=== PATIENT | female | born 1955 | race Hispanic/Latino ===

== ENCOUNTER 2019-03-30 16:26 | Inpatient (IN) | payer SELFPAY ==
[~2019-03-30] VITALS: Ht 160 cm; Wt 55.1 kg
--- OUTSIDE RECORDS SUMMARY | 2019-03-30 16:30 | XMS REPORT ---
[facility] Address Unknown Phone Unavailable Care Team Providers Care Flare Maker Name Role Phone Unavailable Unavailable Problems This patient has no known problems. Allergies, Adverse Reactions, Alerts This patient has no known allergies or adverse reactions. Medications This patient has no known medications. Encounters Start Date/Time End Date/Time Encounter Type Admission Type Attending [facility] Care Department Encounter ID 2019-05-30 00:00:00 2019-05-30 00:00:00 Outpatient [facility] [id number] 2019-04-10 00:00:00 2019-04-10 00:00:00 Outpatient [facility] [id number] 2019-04-05 00:00:00 2019-04-05 00:00:00 Outpatient [facility] [id number] 2019-03-21 08:13:19 2019-03-21 08:13:19 Outpatient [facility] [id number] 2019-03-21 00:00:00 2019-03-21 00:00:00 Outpatient [facility] [id number] 2019-03-13 00:00:00 2019-03-13 00:00:00 Outpatient [facility] [id number] 2019-03-09 09:20:54 2019-03-09 09:20:54 Outpatient [facility] [id number] 2019-03-06 00:00:00 2019-03-06 00:00:00 Outpatient [facility] [id number] 2019-03-03 06:44:00 2019-03-03 06:44:00 Outpatient [facility] [id number] 2019-03-03 00:00:00 2019-03-03 00:00:00 Outpatient [facility] [id number] 2019-03-02 14:18:48 2019-03-02 14:18:48 Outpatient [facility] [id number] 2019-03-02 00:00:00 2019-03-02 00:00:00 Outpatient [facility] [id number] 2019-03-01 00:00:00 2019-03-01 00:00:00 Outpatient [facility] [id number] 2019-02-14 08:39:36 2019-02-14 08:39:36 Outpatient [facility] [id number] 2019-02-13 13:26:56 2019-02-13 13:26:56 Outpatient [facility] [id number] 2019-02-13 13:25:38 2019-02-13 13:25:38 Outpatient [facility] [id number] 2019-02-13 00:00:00 2019-02-13 00:00:00 Outpatient [facility] [id number] 2019-02-09 08:54:27 2019-02-09 08:54:27 Outpatient [facility] [id number] 2019-02-09 07:54:16 2019-02-09 07:54:16 Outpatient [facility] [id number] 2019-02-09 00:00:00 2019-02-09 00:00:00 Outpatient [facility] [id number] 2019-02-09 00:00:00 2019-02-09 00:00:00 Outpatient [facility] [id number] 2019-02-08 07:26:21 2019-02-08 07:26:21 Outpatient [facility] [id number] 2019-01-31 09:26:23 2019-01-31 09:26:23 Outpatient [facility] [id number] 2019-01-31 09:22:54 2019-01-31 09:22:54 Outpatient [facility] [id number] 2019-01-31 00:00:00 2019-01-31 00:00:00 Outpatient [facility] [id number] 2019-01-31 00:00:00 2019-01-31 00:00:00 Outpatient [facility] [id number] 2019-01-30 15:54:46 2019-01-30 15:54:46 Outpatient [facility] [id number] 2019-01-10 10:29:25 2019-01-10 10:29:25 Outpatient [facility] [id number] 2019-01-10 10:15:32 2019-01-10 10:15:32 Outpatient [facility] [id number] 2019-01-10 07:57:34 2019-01-10 07:57:34 Outpatient [facility] [id number] 2019-01-10 00:00:00 2019-01-10 00:00:00 Outpatient [facility] [id number] 2019-01-03 01:58:02 2019-01-03 01:58:02 Emergency [facility] [id number] 2019-01-02 22:29:09 2019-01-02 22:29:09 Emergency [facility] [id number] 2018-12-27 00:00:00 2018-12-27 00:00:00 Outpatient [facility] [id number] 2018-12-26 07:08:16 2018-12-26 07:08:16 Outpatient [facility] [id number] 2018-12-20 10:49:51 2018-12-20 10:49:51 Outpatient [facility] [id number] 2018-12-20 00:00:00 2018-12-20 00:00:00 Outpatient [facility] [id number] 2018-12-19 08:07:37 2018-12-19 08:07:37 Outpatient [facility] [id number] 2018-12-16 07:31:56 2018-12-16 07:31:56 Outpatient [facility] [id number] 2018-12-16 00:00:00 2018-12-16 00:00:00 Outpatient [facility] [id number] 2018-12-14 16:59:17 2018-12-14 16:59:17 Outpatient [facility] [id number] 2018-10-07 08:06:59 2018-10-07 08:06:59 Outpatient [facility] [id number] 2018-09-01 14:40:32 2018-09-01 14:40:32 Outpatient [facility] [id number] 2018-07-14 11:27:20 2018-07-14 11:27:20 Outpatient [facility] [id number] 2018-07-14 09:30:12 2018-07-14 09:30:12 Outpatient [facility] [id number] 2017-07-09 00:00:00 2017-07-09 00:00:00 Outpatient [facility] [id number] 2017-03-10 09:53:02 2017-03-10 09:53:02 Outpatient [facility] [id number] 2017-03-03 00:00:00 2017-03-03 00:00:00 Outpatient [facility] [id number] 2017-01-07 16:55:44 2017-01-07 16:55:44 Outpatient [facility] [id number] 2017-01-05 13:24:40 2017-01-05 13:24:40 Outpatient [facility] [id number] 2016-12-31 00:00:00 2016-12-31 00:00:00 Outpatient [facility] [id number] 2016-12-16 12:35:09 2016-12-16 12:35:09 Outpatient [facility] [id number]
[2019-03-30] MEDS ORDERED: SODIUM CHLORIDE 0.9% 1000ML 1,000 ML IV STA (16:37)
[2019-03-30] MEDS ORDERED: SODIUM CHLORIDE 0.9% 1000ML 500 ML IV STA (16:37)
[2019-03-30] MEDS ORDERED: PANTOPRAZOLE 40 MG 10ML VIAL IV STA (16:37)
[2019-03-30 17:24] LABS: CLARITY,URINE CLEAR (CLEAR); COLOR,URINE YELLOW (YELLOW); KETONES,URINE 1+ (NEGATIVE); LEUKOCYTE ESTERASE ,URINE NEGATIVE (NEGATIVE); NITRITE,URINE NEGATIVE (NEGATIVE); PROTEIN,URINE DIPSTICK NEGATIVE (NEGATIVE)
[2019-03-30 17:25] LABS: BILIRUBIN,URINE NEGATIVE (NEGATIVE); URINE UROBILINOGEN 0.2 mg/dL (0.2 - 1)
[2019-03-30 17:29] LABS: BASOPHILS % 0.2 % (0.0-1.0); EOSINOPHILS % 0.9 % (0.0-6.0); HEMATOCRIT 32.6 % (34.2-44.1); HEMOGLOBIN 11.5 g/dL (12.0-16.0); LYMPHOCYTES # (AUTO) 1.5 (1.0-3.2); LYMPHOCYTES % 33.5 % (18.0-39.1); MEAN CORPUSCULAR HGB CONC 35.3 g/dL (31-35); MEAN CORPUSCULAR VOLUME 90.8 fL (81-99); MONOCYTES # (AUTO) 0.4 (0.2-0.8); MONOCYTES % 8.1 % (4.4-11.3); NEUTROPHILS # (AUTO) 2.5 (2.1-6.9); NEUTROPHILS % 57.1 % (38.7-80.0); PLATELET COUNT 279 x10e3/uL (140-360); RED BLOOD COUNT 3.59 x10e6/uL (3.6-5.1); RED CELL DISTRIBUTION WIDTH 11.6 % (11.7-14.4)
[2019-03-30 17:37] LABS: BACTERIA,URINE MODERATE /HPF; EPITHELIAL CELLS,URINE FEW /LPF; RBC,URINE 0-5 /HPF (0-5)
[2019-03-30 17:43] LABS: ALANINE AMINOTRANSFERASE 12 IU/L (0-55); ALBUMIN 4.1 g/dL (3.5-5.0); ALBUMIN/GLOBULIN RATIO 1.2 (0.8-2.0); ALKALINE PHOSPHATASE 91 IU/L (40-150); ANION GAP 12.7 mmol/L (8-16); BLOOD UREA NITROGEN 5 mg/dL (7-26); BUN/CREATININE RATIO 8 (6-25); CARBON DIOXIDE 25 mmol/L (22-29); CHLORIDE 88 mmol/L (98-107); CREATINE KINASE 15 IU/L (29-168); CREATININE, SERUM 0.63 mg/dL (0.57-1.11); EST GLOMERULAR FILTRATION RATE > 60 ML/MIN (60-); GLUCOSE 98 mg/dL (74-118); LIPASE 11 U/L (8-78); MAGNESIUM 1.9 MG/DL (1.3-2.1); POTASSIUM 3.7 mmol/L (3.5-5.1); SODIUM 122 mmol/L (136-145)
--- NOTE | 2019-03-30 18:04 | Diagnostic Imaging Report ---
EXAMINATION: CHEST SINGLE (PORTABLE) INDICATION: Stomach pain. ^ERMD ORDER ^[id number] ^1655 ^Y COMPARISON: None FINDINGS: TUBES and LINES: None. LUNGS: Lungs are well inflated. Lungs are clear. There is no evidence of pneumonia or pulmonary edema. PLEURA: No pleural effusion or pneumothorax. HEART AND MEDIASTINUM: The cardiomediastinal silhouette is unremarkable. BONES AND SOFT TISSUES: No acute osseous lesion. Soft tissues are unremarkable. UPPER ABDOMEN: No free air under the diaphragm. IMPRESSION: No acute thoracic abnormality. Signed by: Dr. Alexis Salomon M.D. on 03/30/2019 6:01 PM
[2019-03-30] MEDS ORDERED: ONDANSETRON HCL INJ 2MG/ML 2ML 2 MG/ML VIAL IV PRN (18:30)
[2019-03-30] MEDS ORDERED: MORPHINE SULFATE 2 MG/ML SYR 1ML IV PRN (18:30)
[2019-03-30 18:38] LABS: BLOOD UREA NITROGEN 5 mg/dL (7-26); GLUCOSE 96 mg/dL (74-118); OSMOLALITY,SERUM 245 mOsm/kg (278-305); SODIUM 123 mmol/L (136-145)
--- NOTE | 2019-03-30 19:26 | Diagnostic Imaging Report ---
EXAM: CT Abdomen and Pelvis WITH contrast INDICATION: Stomach pain. Postcholecystectomy. COMPARISON: None TECHNIQUE: Abdomen and pelvis were scanned utilizing a multidetector helical scanner from the lung base to the pubic symphysis after administration of IV contrast. Coronal and sagittal reformations were obtained. Routine protocol was performed. Scan was performed when during portal venous phase. IV CONTRAST: 100 mL of Isovue-370 ORAL CONTRAST: Water RADIATION DOSE: Total DLP: 119 mGy*cm Estimated effective dose: (DLP x 0.015 x size factor) mSv. Dose modulation, iterative reconstruction and weight base adjustment of the MA/KV was utilized to reduce the patient dose to as low as reasonably achievable COMPLICATIONS: None FINDINGS: LINES and TUBES: None. LOWER THORAX: Unremarkable HEPATOBILIARY: No focal hepatic lesions. No biliary ductal dilation. GALLBLADDER: Cholecystectomy SPLEEN: No splenomegaly. PANCREAS: No focal masses or ductal dilatation. ADRENALS: No adrenal nodules KIDNEYS/URETERS: Kidneys enhance symmetrically. No hydronephrosis. No cystic or solid mass lesions. No stones. GI TRACT: No abnormal distention, wall thickening, or evidence of bowel obstruction. Appendix is normal. PELVIC ORGANS/BLADDER: Calcified uterine fibroids. LYMPH NODES: No lymphadenopathy. VESSELS: Unremarkable. PERITONEUM / RETROPERITONEUM: No free air or fluid. BONES: Unremarkable. SOFT TISSUES: Unremarkable. IMPRESSION: Status post cholecystectomy. No acute CT abnormality in the abdomen or pelvis. Signed by: Dr. Alexis Salomon M.D. on 03/30/2019 7:23 PM
[2019-03-30] MEDS: SODIUM CHLORIDE 0.9% 1000ML 1,000 ML IV SCH ×2 (19:34→22:00)
[2019-03-30] MEDS ORDERED: ASPIR 8181 MG PO (19:35)
[2019-03-30] MEDS ORDERED: LAMICTAL100 MG PO (19:36)
[2019-03-30] MEDS ORDERED: DEXILANT60 MG PO (19:37)
[2019-03-30] MEDS ORDERED: SIMVASTATIN20 MG PO (19:37)
[2019-03-30] MEDS ORDERED: DIOVAN80 MG PO (19:37)
[2019-03-30] MEDS ORDERED: TEGRETOL200 MG PO (19:38)
[2019-03-30 20:15] VITALS: BP 154/77
--- NOTE | 2019-03-30 20:15 | NUR ---
patient received to room 297 via stretcher from the emergency room. vss. patient c/o occasional abd pain with feelings of fullness. no c/o pain noted at this time. ivf infusing without difficulty. admit assessment/history obtained. family noted at the bedside. patient/family instructed to call for assistance when needed.
[2019-03-30 20:32] VITALS: BP 154/77
[2019-03-30] MEDS ORDERED: SODIUM CHLORIDE 0.9% 50ML 50 ML ONE (20:58)
[2019-03-30] MEDS ORDERED: IOPAMIDOL 370 MG/ML 200 ML INFUS..BTL INJ ONE (20:58)
[2019-03-30] MEDS: FAMOTIDINE 20 MG/2 ML VIAL IV SCH (21:00)
--- NOTE | 2019-03-31 | NUR ---
patient appears to be resting quietly. no c/o abd pain noted. family remains at the bedside.
[2019-03-31 00:43] VITALS: BP 131/66
[2019-03-31] MEDS ORDERED: INFLUENZA VIRUS VAC SPLIT INJ 0.5 ML SYR IM SCH (03:00)
[2019-03-31] MEDS ORDERED: PNEUMOCOCCAL VACCINE POLYVALENT 23 MCG/0.5 ML VIAL IM SCH (03:00)
[2019-03-31 05:15] VITALS: BP 123/59
--- NOTE | 2019-03-31 06:00 | NUR ---
urine osmolality collected and sent to lab at this time.
[2019-03-31 06:49] LABS: BASOPHILS % 0.2 % (0.0-1.0); EOSINOPHILS # (AUTO) 0.1 (0.0-0.4); EOSINOPHILS % 1.3 % (0.0-6.0); HEMATOCRIT 31.3 % (34.2-44.1); HEMOGLOBIN 10.8 g/dL (12.0-16.0); LYMPHOCYTES # (AUTO) 1.4 (1.0-3.2); LYMPHOCYTES % 29.7 % (18.0-39.1); MEAN CORPUSCULAR HGB CONC 34.5 g/dL (31-35); MEAN CORPUSCULAR VOLUME 92.9 fL (81-99); MONOCYTES # (AUTO) 0.4 (0.2-0.8); MONOCYTES % 9.1 % (4.4-11.3); NEUTROPHILS # (AUTO) 2.7 (2.1-6.9); PLATELET COUNT 262 x10e3/uL (140-360); RED BLOOD COUNT 3.37 x10e6/uL (3.6-5.1); RED CELL DISTRIBUTION WIDTH 11.9 % (11.7-14.4)
[2019-03-31 07:02] LABS: ALANINE AMINOTRANSFERASE 11 IU/L (0-55); ALBUMIN 3.6 g/dL (3.5-5.0); ALBUMIN/GLOBULIN RATIO 1.2 (0.8-2.0); ALKALINE PHOSPHATASE 79 IU/L (40-150); ANION GAP 12.2 mmol/L (8-16); BLOOD UREA NITROGEN < 5 mg/dL (7-26); CALCIUM 8.8 mg/dL (8.4-10.2); CARBON DIOXIDE 26 mmol/L (22-29); CHLORIDE 99 mmol/L (98-107); CREATININE, SERUM 0.57 mg/dL (0.57-1.11); EST GLOMERULAR FILTRATION RATE > 60 ML/MIN (60-); GLUCOSE 82 mg/dL (74-118); LIPASE 10 U/L (8-78); POTASSIUM 4.2 mmol/L (3.5-5.1); SODIUM 133 mmol/L (136-145)
[2019-03-31 07:15] LABS: BUN/CREATININE RATIO 9 (6-25)
--- NOTE | 2019-03-31 07:18 | NUR ---
RECEIVED PATIENT LYING IN BED WITH EYES OPEN. RESPIRATION EVEN AND UNLABORED WITHOUT SOB. FAMILY MEMBER AT BEDSIDE. CALL LIGHT IN REACH.
[2019-03-31 08:38] VITALS: BP 140/71
[2019-03-31] MEDS: SODIUM CHLORIDE 0.9% 1000ML 1,000 ML IV SCH (08:39)
[2019-03-31 09:00] VITALS: BP 140/71
[2019-03-31] MEDS ORDERED: INFLUENZA VIRUS VAC SPLIT INJ 0.5 ML SYR IM ONE (09:00)
[2019-03-31] MEDS ORDERED: PNEUMOCOCCAL VACCINE POLYVALENT 23 MCG/0.5 ML VIAL IM ONE (09:00)
[2019-03-31] MEDS: FAMOTIDINE 20 MG/2 ML VIAL IV SCH (09:06)
[2019-03-31] MEDS ORDERED: METOCLOPRAMIDE HCL 10 MG TAB PO ONE (11:45)
[2019-03-31 12:26] VITALS: BP 121/70
--- NOTE | 2019-03-31 14:09 | NUR ---
IV to right AC discontinued, catheter intact, no bleeding noted. Patient is to be d/c to home today as ordered.
--- NOTE | 2019-03-31 14:15 | NUR ---
Patient is transported via wheelchair to private vehicle. Patient is discharge to home as ordered. Personal belongings are with the patient's spouse.
--- NOTE | 2019-03-31 19:53 | Discharge Summary ---
FINAL DIAGNOSES: 1. Hyponatremia secondary to most likely over consumption of water versus medication induced by Lamictal and Tegretol. The patient was taking for seizure. 2. Baseline bloating, most likely secondary to hiatal hernia, reflux, but possible slowing of the stomach. The patient will need to follow up with her GI doctor, but in the meantime, we will try Reglan 5 mg before meals. SUMMARY: A 63-year-old female with all the symptoms prior to her laparoscopic cholecystectomy. The patient had the same symptom of reflux and also with bloating. The patient had multiple workup done with her Gastroenterology at the [facility], [facility] and the patient subsequently had a laparoscopic cholecystectomy done. She has also had EGD done as well. The patient was seen in a week with low sodium level. The patient was subsequently with the symptoms, she could not get an appointment with the [facility]. She went to the [facility] Desmond was subsequently sent home without any tests done. Here, the patient's sodium level was 122 and after IV fluid rehydration was 133. The patient's BUN is too low. She did have a CAT scan of abdomen and pelvis done in the emergency room and also a chest x-ray. The CT with contrast showed that the patient is without any acute abnormality. The patient is stable. She does not have complaint of pain and physical examination otherwise unremarkable, non-distention, nontender. The patient will try on Reglan 5 mg before meals. Discussed with the patient and family. Resume home medication. The patient may need to follow up with the neurologist to adjust the medication of Tegretol and Lamictal if it is the cause of her low sodium level. I discussed with the patient's son. The low sodium level could be secondary to over consumption of water due to the test that was done. Chloride was also low and the serum osmolality also low as well at 245. The patient is otherwise stable. She will go home today. Of note, the urine random sodium is 34. The patient will discharge home. Urinalysis showed leukocyte esterase was negative, no nitrite, and clear yellow urine. No fever. No WBC elevation. The patient was discharged home. Resume home medication. New prescriptions, Reglan 5 mg before meals trial. MD KONG Rios/KEATON /[id number]
== END 2019-03-31 14:27 | disposition home or self-care (01) | DRG 641 ==
LOC: ER 16:26 → ERHOLD 18:26 → MED/SURG3 20:15
PROVIDERS: ADMIT Internal Medicine; ATTEND Internal Medicine
DX: E87.1 Hypo-osmolality and hyponatremia (principal); K44.9 Diaphragmatic hernia without obstruction or gangrene; K21.9 Gastro-esophageal reflux disease without esophagitis; I10 Essential (primary) hypertension; E78.5 Hyperlipidemia, unspecified; Z90.49 Acquired absence of other specified parts of digestive tract
CPT/HCPCS: 36415; 71045; 74177; 80053; 81001; 82550; 82553; 82947; 83690; 83735; 83880; 83935; 84295; 84300; 84484; 84520; 85025; 87086; 90732; 93005; 99284; J7030; Q9967

== ENCOUNTER 2019-04-07 23:06 | Emergency (ER) | payer SELFPAY ==
[~2019-04-07] VITALS: Ht 160 cm; Wt 54.9 kg
[~2019-04-07 23:06] MED LIST: ASPIR 8181 MG PO; DEXILANT60 MG PO; DIOVAN80 MG PO; LAMICTAL100 MG PO; SIMVASTATIN20 MG PO; TEGRETOL200 MG PO
[2019-04-07] MEDS ORDERED: ONDANSETRON HCL INJ 2MG/ML 2ML 2 MG/ML VIAL IV STA (23:58)
[2019-04-08 00:41] LABS: BASOPHILS % 0.3 % (0.0-1.0); EOSINOPHILS # (AUTO) 0.1 (0.0-0.4); EOSINOPHILS % 1.7 % (0.0-6.0); HEMATOCRIT 34.2 % (34.2-44.1); HEMOGLOBIN 11.4 g/dL (12.0-16.0); LYMPHOCYTES # (AUTO) 2.5 (1.0-3.2); LYMPHOCYTES % 41.8 % (18.0-39.1); MEAN CORPUSCULAR HEMOGLOBIN 31.8 pg (28-32); MEAN CORPUSCULAR HGB CONC 33.3 g/dL (31-35); MEAN CORPUSCULAR VOLUME 95.5 fL (81-99); MONOCYTES # (AUTO) 0.4 (0.2-0.8); MONOCYTES % 6.8 % (4.4-11.3); NEUTROPHILS # (AUTO) 2.9 (2.1-6.9); NEUTROPHILS % 49.1 % (38.7-80.0); PLATELET COUNT 298 x10e3/uL (140-360); RED BLOOD COUNT 3.58 x10e6/uL (3.6-5.1); RED CELL DISTRIBUTION WIDTH 11.8 % (11.7-14.4)
--- NOTE | 2019-04-08 00:46 | Diagnostic Imaging Report ---
EXAMINATION: ABDOMEN ACUTE SERIES W/PA CXR INDICATION: ^ABD PAIN ^[id number] ^0015 ^Y COMPARISON: Chest x-ray dated 03/30/[address] dated 03/30/2019 FINDINGS: TUBES and LINES: None. LUNGS: Lungs are well inflated. There is no evidence of pneumonia or pulmonary edema. PLEURA: No pleural effusion or pneumothorax. HEART AND MEDIASTINUM: The cardiomediastinal silhouette is unremarkable. BONES AND SOFT TISSUES: No acute osseous lesion. Lower lumbar spine degenerative changes. Soft tissues are unremarkable. ABDOMEN: No free air under the diaphragm. Nonobstructive bowel gas pattern. No signs of pneumoperitoneum. Right upper quadrant surgical clips, likely related to cholecystectomy. Moderate colonic stool burden. Left pelvic surgical clip. Pelvic calcifications could represent phleboliths or calcified fibroids. No calcification projecting over renal shadows. IMPRESSION: No acute thoracic abnormality. Nonobstructive bowel gas pattern. Signed by: Dr. Tim Martines MD on 04/08/2019 12:43 AM
[2019-04-08 00:59] LABS: ALANINE AMINOTRANSFERASE 14 IU/L (0-55); ALBUMIN 3.9 g/dL (3.5-5.0); ALBUMIN/GLOBULIN RATIO 1.1 (0.8-2.0); ALKALINE PHOSPHATASE 112 IU/L (40-150); ANION GAP 15.5 mmol/L (8-16); BLOOD UREA NITROGEN 7 mg/dL (7-26); BUN/CREATININE RATIO 11 (6-25); CALCIUM 10.2 mg/dL (8.4-10.2); CARBON DIOXIDE 26 mmol/L (22-29); CHLORIDE 97 mmol/L (98-107); CREATININE, SERUM 0.65 mg/dL (0.57-1.11); EST GLOMERULAR FILTRATION RATE > 60 ML/MIN (60-); GLUCOSE 102 mg/dL (74-118); POTASSIUM 4.5 mmol/L (3.5-5.1); SODIUM 134 mmol/L (136-145)
[2019-04-08 01:02] LABS: CLARITY,URINE CLEAR (CLEAR); COLOR,URINE YELLOW (YELLOW)
[2019-04-08 01:03] LABS: BACTERIA,URINE MODERATE /HPF; BILIRUBIN,URINE NEGATIVE (NEGATIVE); EPITHELIAL CELLS,URINE MODERATE /LPF; KETONES,URINE TRACE (NEGATIVE); LEUKOCYTE ESTERASE ,URINE NEGATIVE (NEGATIVE); NITRITE,URINE NEGATIVE (NEGATIVE); PROTEIN,URINE DIPSTICK NEGATIVE (NEGATIVE); URINE UROBILINOGEN 0.2 mg/dL (0.2 - 1)
[2019-04-08 01:09] LABS: AMYLASE 58 U/L (25-125); LIPASE 10 U/L (8-78)
[2019-04-08 02:12] VITALS: BP 158/92
[2019-04-08] MEDS ORDERED: ONDANSETRON HCL INJ 2MG/ML 2ML 2 MG/ML VIAL IV STA (02:18)
== END 2019-04-08 02:30 | disposition home or self-care (01) ==
LOC: ER 23:06
DX: R10.13 Epigastric pain (principal); N30.91 Cystitis, unspecified with hematuria; I10 Essential (primary) hypertension; E78.5 Hyperlipidemia, unspecified; K21.9 Gastro-esophageal reflux disease without esophagitis
CPT/HCPCS: 36415; 74022; 80053; 81001; 82150; 83690; 85025; 99283; J2405